=== PATIENT | male | born 1965 | race African-American/Black ===

== ENCOUNTER 2017-05-11 12:32 | Emergency (ER) | payer BC ==
[~2017-05-11] VITALS: Ht 165.1 cm; Wt 79.4 kg
[~2017-05-11 12:32] MED LIST: CEPH-263 PO; blood pressure
[2017-05-11 13:16] LABS: BILIRUBIN,URINE NEGATIVE (NEG); GLUCOSE,URINE NEGATIVE (NEG); NITRITE,URINE NEGATIVE (NEG); PROTEIN,URINE NEGATIVE (NEG-TRACE)
[2017-05-11 13:24] LABS: SQUAMOUS EPITHELIAL CELL,UR OCC /LPF
[2017-05-11 13:25] LABS: BACTERIA,URINE 0 /HPF (0-FEW); RBC,URINE 0 /HPF (0-2); WBC,URINE OCC /HPF (0-4)
[2017-05-11 13:32] LABS: POTASSIUM ISTAT 3.8 mmol/L (3.5-5.0)
[2017-05-11 13:47] VITALS: BP 192/101
[2017-05-11] MEDS ORDERED: AMLO5TAB4 PO (13:49)
[2017-05-11] MEDS ORDERED: HYDR25TA9 PO (13:49)
--- NOTE | 2017-05-11 14:31 | PHYS DOC ---
Past Medical History Past Medical History: Hypertension Past Surgical History: No Surgical History Additional Past Surgical Histo: PT DENIES Alcohol Use: Occasionally Additional Information: DAILY BEERS Drug Use: None Adult General Chief Complaint Chief Complaint: BLOOD IN URINE HPI HPI Patient is a 51 year old male who presents with blood in his semen and urine after intercourse yesterday. Then today he passed some clots in his urine. He then came in due to his concern after looking up what the possible causes could be on the Internet. he denies any current symptoms, he states he had some lower abdominal cramping at one time but nothing present. Patient reports history of hypertension but hasn't taken his meds for nearly one year because he hasn't been seen a doctor. No nausea or vomiting, no chest pain or shortness of breath , no focal weakness. Review of Systems Review of Systems Constitutional: Denies fever or chills [] Eyes: Denies change in visual acuity, redness, or eye pain [] HENT: Denies nasal congestion or sore throat [] Respiratory: Denies cough or shortness of breath [] Cardiovascular: Denies chest pain GI: Denies abdominal pain, nausea, vomiting, bloody stools or diarrhea [] : per history of present illness Musculoskeletal: Denies back pain or joint pain [] Integument: Denies rash or skin lesions [] Neurologic: Denies headache, focal weakness or sensory changes [] Allergies Allergies Allergies Coded Allergies Type Severity Reaction Last Updated Verified No Known Drug Allergies 03/14/14 No Physical Exam Physical Exam Constitutional: Well developed, well nourished, no acute distress, non-toxic appearance. [] HENT: Normocephalic, atraumatic, bilateral external ears normal, oropharynx moist, no oral exudates, nose normal. [] Eyes: PERRLA, EOMI, conjunctiva normal, no discharge. [] Neck: Normal range of motion, no tenderness, supple, no stridor. [] Cardiovascular:Heart rate regular with regular rhythm, no murmur [] Lungs & Thorax: Bilateral breath sounds clear to auscultation, no wheeze or crackles Abdomen: soft, no tenderness, no masses, nondistended : normal external genitalia, nontender/nonswollen testicles bilaterally, small left inguinal hernia, slightly enlarged prostate on rectal exam no bogginess noted. Skin: Warm, dry, no erythema, no rash. [] Back: No tenderness, no CVA tenderness. [] Extremities: No tenderness, no cyanosis, no clubbing, ROM intact, no edema. [] Neurologic: Alert and oriented X 3, normal motor function, normal sensory function, no focal deficits noted. [] Psychologic: Affect normal, judgement normal, mood normal. [] Current Patient Data Vital Signs Vital Signs Date Time Temp Pulse Resp B/P (MAP) Pulse Ox O2 Delivery O2 Flow Rate FiO2 05/11/17 13:47 57 18 192/101 (131) 95 Room Air 05/11/17 12:50 97.7 97.7 Lab Values Laboratory Tests Test 05/11/17 12:50 05/11/17 13:27 Urine Collection Type Unknown Urine Color Yellow Urine Clarity Cloudy Urine pH 6.0 Urine Specific [place] >=1.030 Urine Protein Negative mg/dL (NEG-TRACE) Urine Glucose (UA) Negative mg/dL (NEG) Urine Ketones (Stick) Negative mg/dL (NEG) Urine Blood Negative (NEG) Urine Nitrite Negative (NEG) Urine Bilirubin Negative (NEG) Urine Urobilinogen Dipstick 1.0 mg/dL (0.2 mg/dL) Urine Leukocyte Esterase Negative (NEG) Urine RBC 0 /HPF (0-2) Urine WBC Occ /HPF (0-4) Urine Squamous Epithelial Cells Occ /LPF Urine Bacteria 0 /HPF (0-FEW) Urine Mucus Slight /LPF POC Hemoglobin 16.3 g/dL (14-18) POC Hematocrit 48 % (37-52) POC Sodium 141 mmol/L (135-145) POC Potassium 3.8 mmol/L (3.5-5.0) POC Chloride 107 mmol/L (98-110) POC Total CO2 25 mmol/L (23-32) Anion Gap 14 mmol/L (6-14) POC Blood Urea Nitrogen 23 mg/dL (8-26) POC Creatinine 1.4 mg/dL (0.5-1.4) Glucose Level 152 mg/dL (70-99) H POC Ionized Calcium ([place]do) 1.13 mmol/L (1.13-1.32) Laboratory Tests 05/11/17 13:27 EKG EKG [] Radiology/Procedures Radiology/Procedures [] Course & Med Decision Making Course & Med Decision Making Pertinent Labs and Imaging studies reviewed. (See chart for details) chem 8 didn't show significant change in Cr. UA didn't show infection or blood. I counseled pt that could be from a number of causes but no acute infection noted today, no active blood. I strongly encourage pt to f/u with urologist and a PCP for these issues. Pt was prescribed norvasc and hctz, referral sheet given, referral to [facility]. Dragon Disclaimer Dragon Disclaimer This electronic medical record was generated, in whole or in part, using a voice recognition dictation system. Departure Departure Impression: Primary Impression: Hypertension Additional Impression: Hematuria Disposition: HOME, SELF-CARE Condition: STABLE Patient Instructions: Hypertension, Hematuria, Adult Scripts Hydrochlorothiazide (HYDROCHLOROTHIAZIDE TABLET ) 25 Mg Tablet 1 TAB PO DAILY, #30 TAB 0 Refills Prov: MICHELLE PATRICK MD 05/11/17 Amlodipine Besylate (NORVASC) 5 Mg Tablet 1 TAB PO DAILY, #30 TAB 0 Refills Prov: MICHELLE PATRICK MD 05/11/17 Problem Qualifiers MICHELLE PATRICK MD May 11, 2017 14:31
== END 2017-05-11 14:00 | disposition home or self-care (01) ==
LOC: ER 12:32
DX: R31.9 Hematuria, unspecified (principal); I10 Essential (primary) hypertension; Z72.89 Other problems related to lifestyle
CPT/HCPCS: 36415; 80047; 81001; 85014; 85018; 99284-25

== ENCOUNTER 2018-03-10 11:15 | Emergency (ER) | payer SELFPAY ==
[~2018-03-10] VITALS: Ht 165.1 cm; Wt 79.4 kg
[~2018-03-10 11:15] MED LIST changes: +AMLO5TAB4 PO; +HYDR25TA9 PO
[2018-03-10 11:23] VITALS: BP 196/109
[2018-03-10] MEDS ORDERED: LIDOCAINE 1% PF 30 ML VIAL. INJ ONE (11:30)
[2018-03-10] MEDS ORDERED: DIPHTH,PERTUSS(ACELL),TET TOX 0.5 ML DISP.SYRIN. VAX IM ONE (11:30)
[2018-03-10] MEDS ORDERED: LIDOCAINE WITH 8.4% SOD BICARB 3 ML DISP.SYRIN. INJ ONE (12:00)
[2018-03-10] MEDS ORDERED: CEPH500T PO (12:30)
--- NOTE | 2018-03-10 12:30 | PHYS DOC ---
Past Medical History Past Medical History: Hypertension Past Surgical History: No Surgical History Additional Past Surgical Histo: PT DENIES Alcohol Use: Occasionally Drug Use: None Adult General Chief Complaint Chief Complaint: LACERATION/AVULSION HPI HPI Patient is a 52 year old male with history of hypertension who presents today with right ring finger laceration that occurred yesterday. Patient states he accidentally cut his finger on a piece of metal in his truck. Patient is right- handed. He states bleeding has been going on since yesterday. Review of Systems Review of Systems Constitutional: Denies fever or chills [] Musculoskeletal: Denies back pain or joint pain [] Integument: Right ring finger laceration Neurologic: Denies headache, focal weakness or sensory changes [] All other systems were reviewed and found to be within normal limits, except as documented in this note. Current Medications Current Medications Current Medications Medications (Trade) Dose Ordered Sig/Evelyn Start Time Stop Time Status Last Admin Dose Admin Diphtheria/ Tetanus/Acell Pertussis (Boostrix) 0.5 ml ONCE ONCE 03/10/18 11:30 03/10/18 11:31 DC 03/10/18 12:07 0.5 ML Lidocaine HCl (Xylocaine 1% Pf 30ml Vial) 30 ml 1X ONCE 03/10/18 11:30 03/10/18 11:31 Cancel Lidocaine/Sodium Bicarbonate (Buffered Lidocaine 1%) 6 ml 1X ONCE 03/10/18 12:00 03/10/18 12:01 DC 03/10/18 12:05 6 ML Allergies Allergies Allergies Coded Allergies Type Severity Reaction Last Updated Verified No Known Drug Allergies 03/14/14 No Physical Exam Physical Exam Constitutional: Well developed, well nourished, no acute distress, non-toxic appearance. [] Skin: Warm, dry, ventral aspect of the right ring finger mid phalanges with a laceration approximately 2 cm long, small amount of bleeding noted from the laceration site. No obvious tendon laceration. Patient able to flex and extend the finger at the MIP PIP and DIP joints. Adequate ulnar sensation to the right ring finger. +2 right radial pulse. Cap refill less than 2 seconds the right ring finger. Back: No tenderness, no CVA tenderness. [] Extremities: No tenderness, no cyanosis, no clubbing, ROM intact, no edema. [] Neurologic: Alert and oriented X 3, normal motor function, normal sensory function, no focal deficits noted. [] Psychologic: Affect normal, judgement normal, mood normal. [] Current Patient Data Vital Signs Vital Signs Date Time Temp Pulse Resp B/P (MAP) Pulse Ox O2 Delivery O2 Flow Rate FiO2 03/10/18 11:23 98.4 78 16 196/109 (138) 97 Room Air 98.4 EKG EKG [] Radiology/Procedures Radiology/Procedures Laceration/Wound Repair Wound Location: Right ring finger Wound's Depth, Shape: C Wound Length (cm): Approximately 2 cm Wound Explored: clean Irrigated w/ Saline (ccs): 30 Betadine Prep?: Yes Anesthesia: 1% buffered lidocaine Volume Anesthetic (ccs): 4 mL Wound Repaired With: Ethilon Suture Size/Type: 5/5 interrupted sutures Progress : Wound was covered with nonstick dressing Course & Med Decision Making Course & Med Decision Making Pertinent Labs and Imaging studies reviewed. (See chart for details) This is a 52-year-old male patient presenting to the ED today with right ring finger laceration that occurred yesterday. The laceration was still bleeding on arrival to the ED. Laceration was closed with 5 interrupted sutures by me. Patient informed the laceration may not close all the way because it's been open for more than 12 hours. Bleeding stopped after laceration was closed. Tetanus was administered. Discharged with cephalexin. Wound care instructions and return precautions provided. Dragon Disclaimer Dragon Disclaimer This electronic medical record was generated, in whole or in part, using a voice recognition dictation system. Departure Departure Impression: Primary Impression: Laceration of finger Disposition: 01 HOME, SELF-CARE Condition: STABLE Referrals: NO PCP (PCP) Follow-up with any emergency room in 7-10 days for suture removal Patient Instructions: Fingertip Laceration Additional Instructions: You have laceration to the right pinky finger that was closed with stitches. Stop at any hospital/emergency room or urgent care and have the stitches removed in 7-10 days. Complete your oral antibiotics. Keep the area clean and dry. Return to the emergency room at any point wound condition worsens especially if he starts draining yellow purulent material, becomes warm and red. Scripts Cephalexin (CEPHALEXIN) 500 Mg Tablet 1 TAB PO BID, #14 TAB Prov: ISH CHU APRN 03/10/18 Problem Qualifiers Primary Impression: Laceration of finger Encounter type: initial encounter Finger: ring finger Damage to nail status : without damage Foreign body presence: without foreign body Laterality: right Qualified Codes: S61.214A - Laceration without foreign body of right ring finger without damage to nail, initial encounter ISH CHU APRN Mar 10, 2018 12:30
== END 2018-03-10 13:03 | disposition home or self-care (01) ==
LOC: ER 11:15
DX: S61.214A Laceration without foreign body of right ring finger without damage to nail, initial encounter (principal); I10 Essential (primary) hypertension; W26.8XXA Contact with other sharp object(s), not elsewhere classified, initial encounter; Y93.89 Activity, other specified; Y92.89 Other specified places as the place of occurrence of the external cause; Y99.8 Other external cause status
CPT/HCPCS: 12001; 90471; 90715; 99283